=== PATIENT | male | born 1945 | race Caucasian/White ===

== ENCOUNTER 2024-01-04 17:10 | Emergency (ER) | payer MEDICARE, SELFPAY ==
[2024-01-04] VITALS (14 sets, daily range): BP systolic 111–150; BP diastolic 56–74; PULSE 63–97; RESP 12–18; TEMP 36.7; O2SAT 92–98
--- NOTE | ~2024-01-04 | CT_ITS ---
EXAMINATION: CT brain wo con DATE: 01/04/2024 18:24 INDICATION: Headache TECHNIQUE: Computed tomography (CT) of the head was performed without intravenous contrast. The mA wa s adjusted according to patient size. Iterative reconstruction technique was employed. Exam dose: 60 5.33 mGy-cm total exam DLP. COMPARISON: None FINDINGS: Prominent bilateral vertebral and carotid siphon internal carotid artery calcifications. No intracranial mass lesion or hemorrhage or cerebrovascular accident. No midline shift or mass effect. Moderately prominent central and cortical cerebral atrophy. No subdural or epidural hematoma. There is prominent thickening of the left maxillary sinus. There is an opacified left ethmoid air ce ll. The paranasal sinuses and mastoid air cells are otherwise unremarkable. No fracture or bone destruction of the cranial vault. IMPRESSION: No acute intracranial finding Left maxillary and minimal left ethmoid sinus disease Reviewed, dictated and finalized at [facility]. Reviewed, dictated and finalized at [facility].
--- NOTE | ~2024-01-04 | CT_ITS ---
EXAMINATION: CT cervical spine wo con DATE: 01/04/2024 18:25 INDICATION: Neck pain TECHNIQUE: Computed tomography (CT) of the cervical spine was performed without intravenous contrast. Automated exposure control and iterative reconstruction technique were employed. Exam dose: 402.00 mGy-cm total exam DLP. COMPARISON: None FINDINGS: There is straightening of cervical spine which may be due to muscle spasm. Normal alignment at the atlantoaxial joints. C1 and C2 are normally aligned and the odontoid process is intact. Vkdl-dl-vopayjue degenerative disc disease at C3-4 with minimal retrolisthesis. Moderate to moderately severe degenerative disease at C4-5 and C5-6 with minimal retrolisthesis. Moderate to moderately severe degenerative disc disease at C6-7. Very prominent bridging osteophyte is noted anterolaterally on the right at C7-T1. Very prominent spurring at the right first rib articulation with T1. No fracture or dislocation or locked facet or prevertebral soft tissue swelling is detected. IMPRESSION: Straightening of cervical spine which may be due to muscle spasm No fracture or dislocation or locked facet Prominent cervical spondylosis Reviewed, dictated and finalized at [facility]. Reviewed, dictated and finalized at [facility].
[2024-01-04] MEDS: HYDROcodone/acetaminophen (*CRX) 5-325 MG TABLET 1 TAB PO (18:05)
[2024-01-04] MEDS: diazePAM (*CRX) 5 MG TABLET PO (18:06)
[2024-01-04] MEDS: KETOROLAC 30 MG/ML VIAL (*BKC) IV PUSH (18:09)
--- NOTE | 2024-01-04 18:12 | ED.GENADULT ---
HPI - General Adult General Chief complaint: Neck Pain/Injury Stated complaint: neck pain and stiffness Time Seen by Provider: 01/04/24 17:23 History of Present Illness HPI narrative: Sharad Cotter is a 78 y/o male who presents with reports of traveling to [place] and back and he started to have neck pain/ stiffness that started gradually 6 days ago, worse 3 days ago, he went to an yesterday and given Flexeril but no relief. He states resting no moving pain is a 4 out of 10 , with any movement pain increases to a 10. Denies any fever chills , Denies any trauma/ fall / known injury Related Data Home Medications Medication Instructions Recorded Confirmed multivitamin (Multiple Vitamins 1 tablet PO DAILY 06/04/19 05/02/23 tablet) vit C 250 mg-vit E 200 unit-zinc 1 cap PO DAILY 06/09/19 05/02/23 ox 12.5 hp-vwqufa-oamgzn-zeax capsule (ICaps AREDS2) omega 4-odk-fdx-fish oil 1,000 mg 1 cap PO BID 04/02/22 05/02/23 (120 mg-180 mg) capsule Allergies Allergy/AdvReac Type Severity Reaction Status Date / Time No Known Allergies Allergy Verified 05/02/23 09:16 Review of Systems Review of Systems: All systems reviewed & are unremarkable except as noted in HPI and below PMFSH Past Medical History Medical History Adenomatous colon polyp Hepatitis Hypertension Family History Family History Sibling Diabetes mellitus Mother Family history of malignant neoplasm Father Family history of lung cancer Social History Social History Years smoked: 10 Smoking status: Former smoker Tobacco type: cigarettes Second hand tobacco smoke exposure: No Alcohol intake: current Drinks per week: 6 Substance use: never Substance use type: does not use Lack of Transportation: No Lack of Food: Never True Current Housing: I Have Housing Concerned About Future Housing: No Difficulty Paying Gas/Electric Bills: No Difficulty Paying for Meds: No Currently Unemployed: No Education: High School Diploma/GED Difficulty w/ Childcare or Family Care: No Living arrangements: with family Occupation/Education: retired Gender identity (if verbalized by the patient): Male Sexual Orientation (if Verbalized by the Patient): Straight or Heterosexual Spiritual care concerns: Yes ([employer]) Agree to blood products: Yes Exam Narrative: GENERAL: Well-appearing, well-nourished, and in no acute distress. HEAD: Normocephalic, atraumatic. EYES: PERRLA and EOMI. ENT: Nares clear, no rhinorrhea or epistaxis. Mucous membranes moist. Oropharynx without tonsillar hypertrophy exudate or other lesions. NECK: Supple. No adenopathy or masses. No carotid bruits or JVD CHEST: Clear to auscultation. No respiratory distress. No wheezes rales or rhonchi HEART: Regular rate and rhythm. No murmur heard. Normal peripheral pulses. ABDOMEN: Soft, nontender, nondistended, normal active bowel sounds. EXTREMITIES: Normal range of motion. No edema. SKIN: Warm, dry, no rash. NEURO: No focal deficits. Alert and oriented x3. PSYCH: Normal mood and affect. Course Vital Signs Vital signs: Vital Signs Temperature 36.7 C 01/04/24 17:12 Pulse Rate 97 01/04/24 17:12 Respiratory Rate 16 01/04/24 17:12 Blood Pressure 136/67 01/04/24 17:12 Pulse Oximetry 96 01/04/24 17:12 Oxygen Delivery Room Air 01/04/24 17:12 Temperature 36.7 C 01/04/24 17:12 Pulse Rate 79 01/04/24 19:00 Respiratory Rate 16 01/04/24 19:00 Blood Pressure 143/74 H 01/04/24 19:00 Pulse Oximetry 98 01/04/24 19:00 Oxygen Delivery Room Air 01/04/24 17:12 Medical Decision Making MDM Narrative Medical decision making narrative: 78 y/o who presents with neck pain/ stiffness that has come on gradually while sitting in a car for a long period traveling
[2024-01-04 18:54] LABS: Basophils Percent Auto 0.2 % (0.2-1.2); Eosinophils Absolute Auto 0.1 K/mm3 (0-0.3); Eosinophils Percent Auto 1.1 % (0-4.4); Hemoglobin 12.7 g/dL (14.0-18.0); Immature Granulocyte Absolute 0.05 K/mm3 (0.00-0.031); Immature Granulocyte Percent A 0.5 % (0-0.5); Mean Corpuscular HGB Conc 34.3 g/dl (32-36); Mean Corpuscular Hemoglobin 31.4 pg (26-34); Mean Corpuscular Volume 91.4 fl (80-100); Mean Platelet Volume 9.2 fl (7.4-10.4); Monocytes Absolute Auto 1.1 K/mm3 (0.1-0.6); Monocytes Percent Auto 10.8 % (2.6-8.5); Neutrophils Absolute Auto 7.1 K/mm3 (1.3-6.7); Neutrophils Percent Auto 67.4 % (45.5-73.1); Platelet Count Result 287 k/mm3 (150-375); Red Blood Count 4.05 M/mm3 (4.6-6.20); Red Cell Distribution Width 13.2 % (11.5-14.5); White Blood Count 10.5 K/mm3 (4.5-10.0)
[2024-01-04 19:04] LABS: Alanine Aminotransferase 16 U/L (6-50); Albumin Level 4.1 g/dL (3.5-5.1); Alkaline Phosphatase 61 U/L (38-126); Anion Gap 10 mmol/L (4-12); Aspartate Amino Transferase 22 U/L (17-59); Bilirubin,Total 0.5 mg/dL (0.2-1.3); Blood Urea Nitrogen 24 mg/dL (9-20); Carbon Dioxide 25 mmol/L (22-30); Chloride 97 mmol/L (98-107); Estimated Glomerular Filt Rate > 60; Glucose 103 mg/dL (65-110); Potassium 4.1 mmol/L (3.4-5.0); Sodium 132 mmol/L (137-145)
== END 2024-01-04 21:00 | disposition home or self-care (01) ==
PROVIDERS: Emergency Provider Nurse Practitioner Family; PCP Family Medicine
DX: S16.1XXA Strain of muscle, fascia and tendon at neck level, initial encounter (principal); M47.812 Spondylosis without myelopathy or radiculopathy, cervical region; I10 Essential (primary) hypertension; Z86.010 Personal history of colon polyps; Z87.891 Personal history of nicotine dependence; X58.XXXA Exposure to other specified factors, initial encounter
CPT/HCPCS: 36415; 70450; 72125; 80053; 85025; 96374; 99284; A9270; J1885

== ENCOUNTER 2024-01-13 06:24 | Emergency (ER) | payer MEDICARE, SELFPAY ==
[2024-01-13 06:28] VITALS: BP 154/68; PULSE 82; RESP 16; TEMP 36.4; O2SAT 99
[2024-01-13] MEDS: diazePAM (*CRX) 5 MG TABLET PO (07:31)
[2024-01-13] MEDS: KETOROLAC 30 MG/ML VIAL (*BKC) IM (07:31)
[2024-01-13 07:39] VITALS: BP 133/61; PULSE 72; RESP 18; O2SAT 95
--- NOTE | 2024-01-13 07:41 | ED.NECK ---
HPI - Neck Pain/Injury General Chief Complaint: Neck Pain/Injury Stated Complaint: neck pain Time Seen by Provider: 01/13/24 07:11 History of Present Illness HPI Narrative: Pt presents with persistent neck pain. Pt says it started after coming back from [place] and was seen in ER 9 days ago for the same and got some relief with valium here. Pt was seen at [facility], [place] before this and started on flexeril which did not help. Pt also saw PCP after visit to ER and was given PT appointment. Pt was sent hoe on steroids and norco but these are not helping. Pt denies fever or numbness or weakness. Pt had CT of head and C spine on ED visit. Related Data Home Medications Medication Instructions Recorded Confirmed multivitamin (Multiple Vitamins 1 tablet PO DAILY 06/04/19 01/07/24 tablet) vit C 250 mg-vit E 200 unit-zinc 1 cap PO DAILY 06/09/19 01/07/24 ox 12.5 cq-aktlgr-wpfsln-zeax capsule (ICaps AREDS2) omega 0-yto-gje-fish oil 1,000 mg 1 cap PO BID 04/02/22 01/07/24 (120 mg-180 mg) capsule Allergies Allergy/AdvReac Type Severity Reaction Status Date / Time No Known Allergies Allergy Verified 01/13/24 06:32 Review of Systems Review of Systems: All systems reviewed & are unremarkable except as noted in HPI and below PMFSH Past Medical History Medical History (Updated 01/13/24 @ 08:31 by Mell Liu III, DO) Adenomatous colon polyp Hepatitis HLA B27 positive Hypertension Family History Family History Sibling Diabetes mellitus Mother Family history of malignant neoplasm Father Family history of lung cancer Social History Social History Years smoked: 10 Smoking status: Former smoker Tobacco type: cigarettes Second hand tobacco smoke exposure: No Alcohol intake: current Drinks per week: 6 Substance use: never Substance use type: does not use Lack of Transportation: No Lack of Food: Never True Current Housing: I Have Housing Concerned About Future Housing: No Difficulty Paying Gas/Electric Bills: No Difficulty Paying for Meds: No Currently Unemployed: No Education: High School Diploma/GED Difficulty w/ Childcare or Family Care: No Living arrangements: with family Occupation/Education: retired Gender identity (if verbalized by the patient): Male Sexual Orientation (if Verbalized by the Patient): Straight or Heterosexual Spiritual care concerns: Yes ([employer]) Agree to blood products: Yes Exam Const: General: healthy appearing and no acute distress Nutritional Appearance: well nourished Orientation/consciousness: patient oriented x3 Neck: Neck: normal visual inspection, no lymphadenopathy and no meningeal signs Other: tender paraspinous muscles with spasm no midline pain. Resp: Effort & Inspection: normal respiratory effort Auscultation: clear to auscultation bilaterally Cardio: Rate: regular rate Rhythm: regular rhythm GI: GI Palp: Yes Soft to palpation and No Tenderness to palpation present (GI) Auscultation: normal bowel sounds Back/Spine/Pelvis: Back: no CVA tenderness Skin: General skin exam: normal color Rashes: no rashes Wounds: no wounds Neuro: General: patient oriented x3 and moves all extremities Cranial nerves: Yes Nystagmus not present Speech: normal speech Extrem: General: normal to inspection and no clubbing, cyanosis or edema Psych: Mental Status: mental status grossly normal Affect: normal affect Attitude: cooperative Course Vital Signs Vital signs: Vital Signs Temperature 97.6 F 01/13/24 06:28 Pulse Rate 82 01/13/24 06:28 Respiratory Rate 16 01/13/24 06:28 Blood Pressure 154/68 H 01/13/24 06:28 Pulse Oximetry 99 01/13/24 06:28 Oxygen Delivery Room Air 01/13/24 06:28 Temperature 98.8 F 01/13/24 08:55 Pulse Rate 56 L 01/13/24 08:55 Respiratory Rate 16
[2024-01-13 08:55] VITALS: BP 123/59; PULSE 56; RESP 16; TEMP 37.1; O2SAT 95
== END 2024-01-13 08:57 | disposition home or self-care (01) ==
PROVIDERS: Emergency Provider Emergency Medicine; PCP Family Medicine
DX: S16.1XXA Strain of muscle, fascia and tendon at neck level, initial encounter (principal); I10 Essential (primary) hypertension; Z86.010 Personal history of colon polyps; Z87.891 Personal history of nicotine dependence; X58.XXXA Exposure to other specified factors, initial encounter
CPT/HCPCS: 96372; 99283; A9270; J1885

== ENCOUNTER 2025-03-09 10:48 | Outpatient (CLI) | payer MEDICARE, SELFPAY ==
--- NOTE | ~2025-03-09 | XR_ITS ---
XR lumbar spine 2-3V Indication: Low back pain, unspecified Comparison: None Findings: Mild osteopenia. Mild ligaments, scoliosis. Moderate loss of vertebral height throughout. Moderate to severe loss of disc height throughout. Soft tissues unremarkable Impression: No acute abnormality. Reviewed, dictated and finalized at location [facility]. Impression: No acute abnormality.
== END 2025-03-09 10:49 | disposition home or self-care (01) ==
LOC: MICIMG 10:51
PROVIDERS: PCP Student in an Organized Health Care Education/Training Program; Visit Provider Physician Assistant
DX: M54.50 Low back pain, unspecified (principal)
CPT/HCPCS: 72100